=== PATIENT | female | born 1990 | race Hispanic/Latino ===

== ENCOUNTER 2019-01-19 12:01 | Emergency (ER) | payer SELFPAY ==
--- NOTE | 2019-01-19 14:07 | RAD ---
CHEST 2 VIEWS: Date: 01/19/19 COMPARISON: Radiograph dated 11/27/16. FINDINGS: Lungs are clear. No pneumothorax or effusion. Cardiac silhouette and mediastinal contours are within normal limits. IMPRESSION: No acute intrathoracic abnormality. POS: [facility]
== END 2019-01-19 13:03 | disposition home or self-care (01) ==
LOC: ERS 12:01
DX: J06.9 Acute upper respiratory infection, unspecified (principal); F17.210 Nicotine dependence, cigarettes, uncomplicated; F32.9 Major depressive disorder, single episode, unspecified
CPT/HCPCS: 71046; 87804

== ENCOUNTER 2019-09-03 21:42 | Emergency (ER) | payer OTHER, SELFPAY ==
[2019-09-03] MEDS ORDERED: Acetaminophen 325 MG TAB ONE (22:09)
--- NOTE | 2019-09-03 22:13 | RAD ---
Exam:3 views right foot HISTORY: Pain. Injury. COMPARISON: 06/17/2012 FINDINGS: Joint spaces are preserved. Lisfranc alignment is maintained. No fracture. IMPRESSION: No fracture.
== END 2019-09-03 22:22 | disposition home or self-care (01) ==
LOC: ERS 21:42
DX: O9A.212 Injury, poisoning and certain other consequences of external causes complicating pregnancy, second trimester (principal); S90.31XA Contusion of right foot, initial encounter; O99.342 Other mental disorders complicating pregnancy, second trimester; F41.9 Anxiety disorder, unspecified; Z79.82 Long term (current) use of aspirin; Z79.899 Other long term (current) drug therapy; Z3A.24 24 weeks gestation of pregnancy

== ENCOUNTER 2019-10-01 11:22 | Emergency (ER) | payer OTHER ==
[2019-10-01] MEDS ORDERED: Acetaminophen 500 MG TAB ONE (12:40)
== END 2019-10-01 12:43 | disposition home or self-care (01) ==
LOC: ERS 11:22
DX: O99.513 Diseases of the respiratory system complicating pregnancy, third trimester (principal); J11.1 Influenza due to unidentified influenza virus with other respiratory manifestations; O99.343 Other mental disorders complicating pregnancy, third trimester; F41.9 Anxiety disorder, unspecified; Z79.899 Other long term (current) drug therapy
CPT/HCPCS: 87804; 99283

== ENCOUNTER 2019-10-13 18:24 | Day surgery (SDC) | payer OTHER ==
[2019-10-13 18:58] VITALS: BMI 19.3
[2019-10-13] MEDS ORDERED: hydrALAZINE 20 MG/ML VIAL SLOW IVP PRN (19:51)
--- NOTE | 2019-10-13 19:58 | PDOC.FPROB ---
FMR OB H&P: HPI - History of Present Illness Chief Complaint: pulling at umbilicus Indentification: 29yo @ 31.3wga History of Present Illness: Patient is a 29yo at 31.1wga that presents with pulling at her umbilicus. She reports that this began yesterday, and resolved with laying down and with tylenol but it has recurred today. She has some ttp around the umbilicus area. She reports of a sharp pain in her vagina approximately 1 week ago and it has recurred today. She also notes vaginal discharge for the last 1-2 days described as white/clear and vaginal itching the last 2 weeks. She tried OTC montistat but that did not seem to help. Reports of slight vaginal spotting with wiping on friday, but this has since resolved. She is feeling baby move, denies contractions. Denies cp, sob, n/v/d, headaches. PCP:Sherry FMR OB H&P: Current - Care : 2 Para: 0 Gestational age: 31.1 FMR OB H&P: History - Past Medical History PMH: A1GDM, diagnosed within the last month - OB History OB History: delivery via 10 years ago, full-term -baby had omphalocele and survived 2mo before passing away - Surgical History Sx History: - Social History Social History: no smoking, etoh use, or drug use during prior etoh and smoking before - Family History Family History: mom: htn, dm, [place] FMR OB H&P: Medications - Current Home Medications: Medication Instructions Recorded Confirmed Type Aspirin [Aspir-Low] 1 tab PO DAILY 10/13/19 10/13/19 History Doxylamine Succinate/Vit B6 2 tablet PO HS 10/13/19 10/13/19 History [Manuel MARIN] Pnv72/Iron,Gluc/Folic/Dss/Dha 1 tab PO DAILY 10/13/19 10/13/19 History [Citranatal 90 DHA Combo Pack] Allergies/Adverse Reactions: Allergies Allergy/AdvReac Type Severity Reaction Status Date / Time mushroom Allergy Verified 10/13/19 18:52 FMR OB H&P: ROS - Review of Systems General: denies: fever/chills, weight/appetite/sleep changes Eyes: denies: eye pain, vision changes ENT: denies: nasal congestion, rhinorrhea Cardiovascular: denies: chest pain, palpitation Respiratory: denies: cough, shortness of breath Gastrointestinal: reports: abdominal pain. denies: nausea, vomiting, diarrhea Genitourinary (Female): reports: vaginal discharge, vaginal pain. denies: vaginal bleeding, contractions Musculoskeletal: denies: stiffness, tenderness Neurologic: denies: numbness, syncope Integumentary: denies: itching, rash Breast: denies: lumps, bumps Endocrine: denies: cold intolerance, heat intolerance Hematologic/Lymphatic: denies: prolonged or excessive bleeding, enlarged lymph nodes Psychological: denies: depression, anxiety FMR OB H&P: Vital Signs - Maternal Vital signs: BP 124/67, pulse 96 - Heart Tones Variability: moderate Acceleration: present [place] contractions every: none FMR OB H&P: Physical Exam - Physical Exam General: NAD, awake, alert and oriented HEENT: normocephalic and atraumatic, EOMI, MMM Neck: supple, FROM Chest: non-tender to palpation, no lesions Heart: RRR, normal S1/S2 General: CTAB, no respiratory distress Abdomen: soft, gravid, bowel sound present, other (slightly ttp by umbilicus) Musculoskeletal: pulses present, FROM in all four extremities Neurological: no clonus, no focal deficit Skin: no rash, good tugor Lymphatic: no unusual bruising or bleeding, no purpura Psychiatric: intact recent and remote memory, good judgement and insight - Pelvic Exam Vulva: normal hair distribution FMR OB H&P: A/P - Problem List (1) Status: Acute Disposition: 29yo presents with umbilicus and intermittent vaginal pain # #umbilicus pain -no vaginal bleeding -FHTs reactive -pain resolves with tylenol and laying down -likely common pain -encourage patient to continue tylenol and laying down as needed #vaginal itching/white discharge/vaginal pain -vp3 positive for domi -patient not using monistat as prescribed, has only been using it on her exterior vagina -encouraged patient to use the applicator as monistat as prescribed and to f/u with her primary care provider -patient agreeable with the plan of care Dispo: patient is discharged with instructions to try monistat with the applicator and to f/u with her pcp Discussion: Date/Time: 10/13/191951 This H&P was discussed with [Lilli] who agree with the above documentation and plan. Addendum - Attending - Attending Attestation Date/Time: 10/14/1925 I personally evaluated the patient and discussed the management with Dr. Parsons I agree with the History, Examination, Assessment and Plan documented above with any addition or exceptions noted below.
== END 2019-10-13 22:16 | disposition home or self-care (01) ==
LOC: L&D/OP 18:24
PROVIDERS: ATTEND Orthopaedic Surgery
DX: O99.89 Other specified diseases and conditions complicating pregnancy, childbirth and the puerperium (principal); R10.2 Pelvic and perineal pain; R10.33 Periumbilical pain; O98.813 Other maternal infectious and parasitic diseases complicating pregnancy, third trimester; B37.9 Candidiasis, unspecified; O24.419 Gestational diabetes mellitus in pregnancy, unspecified control; Z3A.31 31 weeks gestation of pregnancy; Z79.82 Long term (current) use of aspirin; Z79.899 Other long term (current) drug therapy; Z91.018 Allergy to other foods
CPT/HCPCS: 87480; 87510; 87660

== ENCOUNTER 2020-08-21 08:27 | Emergency (ER) | payer OTHER, SELFPAY | END 2020-08-21 10:03 | disposition home or self-care (01) | LOC: ERS 08:27 | DX: M54.12 Radiculopathy, cervical region (principal); F41.9 Anxiety disorder, unspecified; F17.210 Nicotine dependence, cigarettes, uncomplicated | CPT/HCPCS: 99283 ==

== ENCOUNTER 2022-06-10 22:27 | Emergency (ER) | payer SELFPAY ==
[2022-06-10 23:30] LABS: #Basophils 0.1 thou/uL (0.0-0.2); #Eosinphils 0.3 thou/uL (0.0-0.7); #Lymphocytes 3.1 thou/uL (1.20-3.40); #Monocytes 0.8 thou/uL (0.11-0.59); #Neutrophils 8.3 thou/uL (1.40-6.50); %Basophils 0.8 % (0.0-1.0); %Eosinophils 2.8 % (0.0-10.0); %Lymphocytes 24.5 % (21.0-51.0); %Neutrophils 65.9 % (42.0-75.0); Hemoglobin 13.7 g/dL (12.0-16.0); Mean Corpuscular HGB CONC 34.9 g/dL (32.0-36.0); Mean Corpuscular Hemoglobin 29.9 pg (27.0-31.0); Mean Corpuscular Volume 85.8 fL (78.0-98.0); Mean Platelet Volume 8.2 fL (7.4-10.4); Platelet Count 212 thou/uL (130-400); RBC Distribution Width 11.9 % (11.5-14.5); Red Blood Cell (RBC) Count 4.59 mill/uL (4.20-5.40); White Blood Cell (WBC) Count 12.6 thou/uL (4.8-10.8)
[2022-06-10 23:49] LABS: ALT (SGPT) 17 U/L (8-55); AST (SGOT) 16 U/L (5-34); Alkaline Phosphatase 80 U/L (40-110); Anion Gap 14 mmol/L (10-20); BUN (Urea Nitrogen) 10 mg/dL (7.0-18.7); Bilirubin, Total 0.4 mg/dL (0.2-1.2); Calc. Creatinine Clearance 0 mL/min (70-130); Calcium 9.7 mg/dL (7.8-10.44); Carbon Dioxide 26 mmol/L (22-29); Chloride 102 mmol/L (98-107); Estimated GFR 115; Globulin 3.4 g/dL (2.4-3.5); Glucose 106 mg/dL (70-105); Potassium 3.5 mmol/L (3.5-5.1); Protein, Total 7.4 g/dL (6.0-8.3); Sodium 138 mmol/L (136-145)
[2022-06-11 01:06] LABS: Bacteria/HPF None Seen HPF (None Seen); Bilirubin Negative (Negative); Blood, Urine 2+ (Negative); Clarity Clear (Clear); Glucose, Urine (Dipstick) Normal (Negative); Ketone, Urine Negative (Negative); Leukocyte 75 Leu/uL (Negative); Nitrite Negative (Negative); Protein, Urine (Dipstick) Negative (Neg-Trace); RBC/HPF 0-3 HPF (0-3); Squamous Epithelial 0-3 HPF (0-3); Urobilinogen Normal mg/dL (Less than 2); pH, Urine 6.5 (5.0-9.0)
== END 2022-06-11 04:41 | disposition home or self-care (01) ==
LOC: ERS 22:27
DX: O20.9 Hemorrhage in early pregnancy, unspecified (principal); O99.331 Smoking (tobacco) complicating pregnancy, first trimester; F17.210 Nicotine dependence, cigarettes, uncomplicated; Z3A.10 10 weeks gestation of pregnancy
CPT/HCPCS: 36415; 76856; 80053; 81003; 81015; 84702; 85025; 86850; 86900; 86901; 90384; 96372

== ENCOUNTER 2023-12-12 16:05 | Emergency (ER) | payer BC, OTHER ==
[2023-12-12 16:50] LABS: BHCG - Serum POSITIVE (NEGATIVE); Pregs Control Background? CLEAR/WHITE (CLR/WHITE); Pregs Control Bar Appear? YES (CONTROL BAR)
[2023-12-12 18:01] LABS: Bacteria/HPF None Seen HPF (None Seen); Bilirubin Negative (Negative); Blood, Urine 3+ (Negative); CAUTI Indications for Culture Pregnancy; Clarity Clear (Clear); Glucose, Urine (Dipstick) Normal (Negative); Ketone, Urine Negative (Negative); Leukocyte Negative Leu/uL (Negative); Nitrite Negative (Negative); Protein, Urine (Dipstick) Negative (Neg-Trace); RBC/HPF 0-3 HPF (0-3); Specific Gravity, Urine 1.005 (1.002-1.036); Squamous Epithelial 0-3 HPF (0-3); Urobilinogen Normal mg/dL (Less than 2); WBC/HPF 0-3 HPF (0-3); pH, Urine 5.5 (5.0-9.0)
[2023-12-12 18:05] LABS: Urine Culture Reflex Yes Yes
== END 2023-12-12 20:25 | disposition home or self-care (01) ==
LOC: ERS 16:05
DX: O20.0 Threatened abortion (principal); O99.331 Smoking (tobacco) complicating pregnancy, first trimester; F17.290 Nicotine dependence, other tobacco product, uncomplicated; O24.419 Gestational diabetes mellitus in pregnancy, unspecified control; Z3A.01 Less than 8 weeks gestation of pregnancy; Z55.6 Problems related to health literacy
CPT/HCPCS: 36415; 76801; 81001; 84702; 84703; 86900; 86901; 87086; 90384; 96372

== ENCOUNTER 2024-01-04 15:53 | Emergency (ER) | payer BC ==
[2024-01-04 16:34] LABS: #Eosinphils 0.2 thou/uL (0.0-0.7); #Monocytes 0.7 thou/uL (0.11-0.59); #Neutrophils 5.8 thou/uL (1.40-6.50); %Basophils 0.4 % (0.0-1.0); %Eosinophils 1.6 % (0.0-10.0); %Lymphocytes 29.3 % (21.0-51.0); %Monocytes 7.5 % (0.0-10.0); %Neutrophils 60.9 % (42.0-75.0); Hemoglobin 11.4 g/dL (12.0-16.0); Mean Corpuscular HGB CONC 34.5 g/dL (32.0-36.0); Mean Corpuscular Hemoglobin 26.8 pg (27.0-31.0); Mean Corpuscular Volume 77.6 fl (78.0-98.0); Mean Platelet Volume 10.4 fL (7.4-10.4); Platelet Count 220 10x3/uL (130-400); RBC Distribution Width 13.6 % (11.5-14.5); Red Blood Cell (RBC) Count 4.25 mill/uL (4.20-5.40); White Blood Cell (WBC) Count 9.5 10x3/uL (4.8-10.8)
[2024-01-04 16:41] LABS: BHCG - Serum POSITIVE (NEGATIVE)
[2024-01-04 16:42] LABS: Pregs Control Background? CLEAR/WHITE (CLR/WHITE); Pregs Control Bar Appear? YES (CONTROL BAR)
[2024-01-04 16:47] LABS: Anion Gap 10 mmol/L (10-20); BUN (Urea Nitrogen) 9 mg/dL (7.0-18.7); Calc. Creatinine Clearance 0 mL/min (70-130); Calcium 8.8 mg/dL (7.8-10.44); Carbon Dioxide 25 mmol/L (22-29); Chloride 105 mmol/L (98-107); Estimated GFR 116; Glucose 86 mg/dL (70-105); Potassium 3.8 mmol/L (3.5-5.1); Sodium 136 mmol/L (136-145)
[2024-01-04 17:41] LABS: Bilirubin Negative (Negative); Blood, Urine 3+ (Negative); CAUTI Indications for Culture Pelvic or flank pain; Clarity Turbid (Clear); Glucose, Urine (Dipstick) Normal (Negative); Ketone, Urine Negative (Negative); Leukocyte 250 Leu/uL (Negative); Nitrite Negative (Negative); Protein, Urine (Dipstick) Negative (Neg-Trace); RBC/HPF 0-3 HPF (0-3); Specific Gravity, Urine 1.012 (1.002-1.036); Urobilinogen Normal mg/dL (Less than 2); pH, Urine 7.5 (5.0-9.0)
[2024-01-04 17:43] LABS: Bacteria/HPF 1+ HPF (None Seen)
[2024-01-04 17:44] LABS: Urine Culture Reflex Yes Yes
== END 2024-01-04 20:17 | disposition home or self-care (01) ==
LOC: ERS 15:53
DX: O20.0 Threatened abortion (principal); O23.91 Unspecified genitourinary tract infection in pregnancy, first trimester; O24.419 Gestational diabetes mellitus in pregnancy, unspecified control; O99.331 Smoking (tobacco) complicating pregnancy, first trimester; R82.71 Bacteriuria; Z3A.11 11 weeks gestation of pregnancy
CPT/HCPCS: 36415; 76856; 80048; 81001; 84702; 84703; 85025; 86900; 86901; 87086; 90384; 96372

== ENCOUNTER 2024-09-06 13:56 | Emergency (ER) | payer BC, MEDICAID ==
[2024-09-06] MEDS ORDERED: Famotidine 20 MG TAB ONE (14:20)
[2024-09-06] MEDS ORDERED: predniSONE 20 MG TAB ONE (14:20)
[2024-09-06] MEDS ORDERED: Ibuprofen 800 MG TAB ONE (14:59)
[2024-09-06] MEDS ORDERED: hydrOXYzine 25 MG TAB ONE (15:03)
== END 2024-09-06 16:23 | disposition home or self-care (01) ==
LOC: ERS 13:56
DX: S80.262A Insect bite (nonvenomous), left knee, initial encounter (principal); S80.261A Insect bite (nonvenomous), right knee, initial encounter; L03.116 Cellulitis of left lower limb; L03.115 Cellulitis of right lower limb; F41.9 Anxiety disorder, unspecified; W57.XXXA Bitten or stung by nonvenomous insect and other nonvenomous arthropods, initial encounter; E11.9 Type 2 diabetes mellitus without complications
CPT/HCPCS: 99283; J7512